=== PATIENT | female | born 1950 | race Two or more races ===

== ENCOUNTER 2018-04-02 11:11 | Outpatient (CLI) | payer OTHER ==
[~2018-04-02 11:11] MED LIST: INTESTINEX680 MG PO; LEVOTHYROXINE150 MCG PO; LITHIUM CARBON300 M2; NABUMETONE500 MG PO; PERCOCET 5/3251 TAB PO; SIMVASTATIN20 MG; SIMVASTATIN20 MG PO; SYNTHROID150 MCG; TEGRETOL200 MG
== END 2018-04-02 11:23 | disposition home or self-care (01) ==
LOC: NUCLEAR 11:11
DX: G45.8 Other transient cerebral ischemic attacks and related syndromes (principal)

== ENCOUNTER 2020-12-20 04:36 | Inpatient (IN) | payer OTHER ==
[~2020-12-20] VITALS: Ht 162.6 cm; Wt 72.6 kg
[2020-12-20] MEDS ORDERED: XELPROS2.5 ML (04:57)
[2020-12-28] MEDS ORDERED: AMILORIDE HCL5 MG PO (13:39)
== END 2020-12-28 14:41 | disposition home or self-care (01) | DRG 690 ==
LOC: ER 04:36 → MEDJ 12-22 14:43 → MEDI 12-27 18:22
PROVIDERS: ADMIT Internal Medicine; ATTEND Internal Medicine
PROC: BW21ZZZ Computerized Tomography (CT Scan) of Abdomen and Pelvis (ICD-10-PCS; principal; 2020-12-22)
DX: N39.0 Urinary tract infection, site not specified (principal); E87.0 Hyperosmolality and hypernatremia; F31.89 Other bipolar disorder; R41.0 Disorientation, unspecified; N17.8 Other acute kidney failure; B96.29 Other Escherichia coli [E. coli] as the cause of diseases classified elsewhere; Z20.822 Contact with and (suspected) exposure to COVID-19; E86.0 Dehydration; E03.8 Other specified hypothyroidism

== ENCOUNTER 2022-06-09 15:34 | Inpatient (IN) | payer OTHER ==
[~2022-06-09] VITALS: Ht 152.4 cm; Wt 90.7 kg
[~2022-06-09 15:34] MED LIST changes: +AMILORIDE HCL5 MG PO; +XELPROS2.5 ML
--- NOTE | 2022-06-09 16:08 | NUR ---
PACIENTE TRAIDO EN AMBULANCIA LOS PARAMEDICOS REFIERE QUE LA TRAEN DE UN HOME PORQUE PRESENTA LACY FLEMA Y FALTA DE AIRE. AL MOMENTO DEL TRIAGE PACIENTE NO RESPONDE. SE MIDEN S/V
--- NOTE | 2022-06-09 17:12 | NUR ---
SE RECIBE PTE A AREA DE CUIDADO CRITCO, SE UBICA EN LEBRON #2, SE CONECTA A MONITOR CARDIACO Y OXIMETRIA. PTE CON FUNEZ PATENTE BAJANDO A GRAVEDAD LO CA DEL HOGAR CON FECHA DE 06/04/22. SE REALIZA NICOLE DE MUESTRAS, SE CANALIZA X2 EN RA Y LT. SE NOTIFICAN ABG A RT.RAYGOZA. SE ADMINITRANS MEDS KARINA ORDEN MEDICA. SE RELAIZA EKG Y SE PRESENTA A . SE MANTIENE PTE BAJO OBSERVACION POR CAMBIOS SIGNIFICATIVOS.
[2022-06-10] MEDS ORDERED: MELATONIN10 M4 (13:46)
[2022-06-10] MEDS ORDERED: FISH OIL 500 M1 EAC3 (13:47)
[2022-06-10] MEDS ORDERED: SENTRY TABLET1 EACH (13:47)
[2022-06-10] MEDS ORDERED: LEVOTHYROXINE100 MCG (13:47)
[2022-06-10] MEDS ORDERED: VITAMIN D325 MCG (13:47)
[2022-06-10] MEDS ORDERED: TRAZODONE HCL50 MG (13:47)
[2022-06-10] MEDS ORDERED: OLANZAPINE2.5 MG (13:47)
[2022-06-10] MEDS ORDERED: FAMOTIDINE20 MG (13:47)
[2022-06-10] MEDS ORDERED: RIVASTIGMINE1 EAC1 (13:47)
== END 2022-06-18 11:25 | disposition designated cancer center or children's hospital (05) | DRG 871 ==
LOC: ER 15:34 → ICU 18:08 → ICU-2 18:08 → ICU 22:48 → MEDJ 06-13 18:47
PROVIDERS: ADMIT Internal Medicine; ATTEND Internal Medicine
PROC: B24BZZZ Ultrasonography of Heart with Aorta (ICD-10-PCS; 2022-06-09)
PROC: BW24ZZZ Computerized Tomography (CT Scan) of Chest and Abdomen (ICD-10-PCS; 2022-06-10)
PROC: 4A12X4Z Monitoring of Cardiac Electrical Activity, External Approach (ICD-10-PCS; principal; 2022-06-13)
DX: A41.9 Sepsis, unspecified organism (principal); J69.0 Pneumonitis due to inhalation of food and vomit; R65.21 Severe sepsis with septic shock; N17.8 Other acute kidney failure; N39.0 Urinary tract infection, site not specified; R09.02 Hypoxemia; E86.0 Dehydration; E03.9 Hypothyroidism, unspecified; Q90.9 Down syndrome, unspecified; Z74.01 Bed confinement status; I10 Essential (primary) hypertension; E78.5 Hyperlipidemia, unspecified; Z20.822 Contact with and (suspected) exposure to COVID-19; F31.9 Bipolar disorder, unspecified; Z22.322 Carrier or suspected carrier of Methicillin resistant Staphylococcus aureus

== ENCOUNTER 2023-12-10 05:34 | Emergency (ER) | payer OTHER ==
[~2023-12-10] VITALS: Ht 158.8 cm; Wt 55.8 kg
[~2023-12-10 05:34] MED LIST changes: +ACID REDUCER20 M1; +ATACAND4 MG PO; +CRESTOR5 MG PO; +FAMOTIDINE20 MG; +FISH OIL 500 M1 EAC3; +LEVOTHYROXINE100 MCG; +MELATONIN10 M4; +OLANZAPINE2.5 MG; +OMEPRAZOLE20 M2 PO; +RIVASTIGMINE1 EAC1; +SENTRY TABLET1 EACH; +SYNTHROID150 MCG PO; +TRAZODONE HCL50 MG; +VITAMIN D325 MCG
[2023-12-10] MEDS ORDERED: ZYPREXA15 MG (05:54)
[2023-12-10] MEDS ORDERED: 0.9 % SODIUM CHLORIDE 250 ML IV SCH (06:30)
[2023-12-10 07:07] LABS: HEMATOCRIT 30.5 % (36.0-45.00); HEMOGLOBIN 10.4 g/dL (12.0-15.00); MEAN CELL VOLUME 94.9 fL (80.00-100.00); MEAN CORPUSCULAR HEMOGLOBIN 32.4 pg (27.00-32.0); MEAN CORPUSCULAR HGB CONC 34.2 g/dl (32.0-36.0); PLATELET COUNT 218 K/uL (150-450); RED BLOOD COUNT 3.22 M/uL (4.00-6.00); RED CELL DISTRIBUTION WIDTH 13.2 % (11.5-14.5)
[2023-12-10] MEDS ORDERED: ORPHENADRINE CITRATE 30 MG/ML AMPUL IM STA (07:26)
[2023-12-10 07:33] LABS: INR 0.96; PARTIAL THROMBOPLASTIN TIME 25.5 SECONDS (22.0-34.0)
[2023-12-10 07:35] LABS: PROTHROMBIN TIME 10.1 SECONDS (9.0-11.5)
[2023-12-10 07:39] LABS: ALBUMIN 2.8 gm/dL (3.4-5.0); BILIRUBIN TOTAL 0.43 mg/dL (0.3-1.2); CALCIUM 9.2 mg/dL (8.5-10.1); CREATININE SERUM 2.84 mg/dL (0.55-1.02); GFR 16.21; GLOBULINA 3.4 G/DL (2.4-3.5); POTASSIUM 4.77 mEq/L (3.5-5.1); TOTAL PROTEIN 6.2 gm/dL (6.4-8.2)
[2023-12-10] MEDS ORDERED: FLUMAZENIL 0.5 MG/5 ML ML IV STA ×2 (08:52→10:57)
[2023-12-11] MEDS ORDERED: 0.9 % SODIUM CHLORIDE 1,000 ML IV SCH (09:00)
== END 2023-12-10 13:54 | disposition home or self-care (01) ==
LOC: ER 05:35
PROVIDERS: General Practice
DX: R42 Dizziness and giddiness (principal); T50.905A Adverse effect of unspecified drugs, medicaments and biological substances, initial encounter; G24.3 Spasmodic torticollis; R51.9 Headache, unspecified
CPT/HCPCS: 36415; 70450; 70490; 71045; 93005; 93041; 94760; 96365; 99284; J7030

== ENCOUNTER 2023-12-11 21:37 | Emergency (ER) | payer OTHER ==
[~2023-12-11] VITALS: Ht 157.5 cm; Wt 55.8 kg
[~2023-12-11 21:37] MED LIST changes: +ZYPREXA15 MG
[2023-12-11] MEDS ORDERED: ACETAMINOPHEN 500 MG GEL..CAP PO ONE (22:09)
[2023-12-11] MEDS ORDERED: CEFTRIAXONE SODIUM 1,000 MG VIAL IV ONE (22:30)
[2023-12-11] MEDS ORDERED: LIDOCAINE HCL 1% 10ML VIAL IJ ONE (22:30)
[2023-12-11] MEDS ORDERED: 0.9 % SODIUM CHLORIDE 1,000 ML IV ONE (22:30)
[2023-12-11] MEDS ORDERED: ACETAMINOPHEN 325 MG TABLET PO ONE (22:30)
[2023-12-11] MEDS ORDERED: CEFTRIAXONE SODIUM 1,000 MG VIAL ONE (22:35)
[2023-12-11] MEDS ORDERED: LIDOCAINE HCL 1% 10ML VIAL ONE ×2 (23:11→23:40)
[2023-12-12 00:41] LABS: HEMATOCRIT 28.3 % (36.0-45.00); HEMOGLOBIN 9.5 g/dL (12.0-15.00); MEAN CELL VOLUME 93.8 fL (80.00-100.00); MEAN CORPUSCULAR HEMOGLOBIN 31.6 pg (27.00-32.0); MEAN CORPUSCULAR HGB CONC 33.6 g/dl (32.0-36.0); PLATELET COUNT 189 K/uL (150-450); RED BLOOD COUNT 3.01 M/uL (4.00-6.00); RED CELL DISTRIBUTION WIDTH 13.4 % (11.5-14.5)
[2023-12-12 01:00] LABS: ALBUMIN 2.5 gm/dL (3.4-5.0); BILIRUBIN TOTAL 0.28 mg/dL (0.3-1.2); CALCIUM 8.6 mg/dL (8.5-10.1); CREATININE SERUM 2.74 mg/dL (0.55-1.02); GFR 16.89; POTASSIUM 5.01 mEq/L (3.5-5.1); TOTAL PROTEIN 5.5 gm/dL (6.4-8.2)
== END 2023-12-12 02:00 | disposition home or self-care (01) ==
LOC: ER 21:39
PROVIDERS: General Practice
DX: S01.81XA Laceration without foreign body of other part of head, initial encounter (principal); T14.8XXA Other injury of unspecified body region, initial encounter; W19.XXXA Unspecified fall, initial encounter; Y93.89 Activity, other specified; Y92.091 Bathroom in other non-institutional residence as the place of occurrence of the external cause; Y99.8 Other external cause status; Z20.822 Contact with and (suspected) exposure to COVID-19; E03.8 Other specified hypothyroidism; Z91.041 Radiographic dye allergy status
CPT/HCPCS: 12013; 36415; 70450; 72125; 72170; 73560; 96365; 96366; 99284; J0696; J7030

== ENCOUNTER 2023-12-21 11:02 | Emergency (ER) | payer OTHER ==
[~2023-12-21] VITALS: Ht 157.5 cm; Wt 55.8 kg
== END 2023-12-21 12:18 | disposition home or self-care (01) ==
LOC: ER 11:03
DX: Z48.02 Encounter for removal of sutures (principal); Z91.041 Radiographic dye allergy status